=== PATIENT | male | born 1995 | race Caucasian/White ===

== ENCOUNTER → 2021-09-17 10:50 | Outpatient (BNVA) | payer MEDICAID, SELFPAY | PROVIDERS: Visit Provider Nurse Practitioner | DX: E66.9 Obesity, unspecified (principal) | CPT/HCPCS: 80053; 84443; 85025 ==

== ENCOUNTER 2021-10-18 13:17 | Outpatient (CLI) | payer MEDICAID, SELFPAY ==
--- NOTE | 2021-10-18 13:25 | XR_ITS ---
WS: [id number] Exam: XR lumbar spine 2-3V* [id number] Date/Time of Exam: 10/18/2021 1:40 PM Reason For Exam: M54.50 - Low back pain, unspecified Findings: In the AP projection, the lumbar spine is straight. The sacroiliac joints are open. The facet struc tures are bilaterally symmetrical. In the lateral projection, the lumbar curve is well maintained. The intervertebral disc spaces are intact. No fractures or anomalies of the lumbar spine are noted. XR/XR lumbar spine 2-3V* [id number] IMPRESSION: Negative lumbar spine.
== END 2021-10-18 13:18 | disposition home or self-care (01) ==
LOC: RAD 13:20
PROVIDERS: Visit Provider Nurse Practitioner Family
DX: M54.50 Low back pain, unspecified (principal)
CPT/HCPCS: 72100

== ENCOUNTER 2021-11-03 20:00 | Outpatient (CLI) | payer MEDICAID, SELFPAY | END 2021-11-03 20:01 | disposition home or self-care (01) | LOC: SLEEP 11-04 06:17 | PROVIDERS: Visit Provider Nurse Practitioner | DX: G47.33 Obstructive sleep apnea (adult) (pediatric) (principal) | CPT/HCPCS: 95810 ==

== ENCOUNTER 2024-07-14 12:54 | Emergency (ER) | payer SELFPAY ==
[2024-07-14 13:07] VITALS: BP 147/98; PULSE 88; RESP 16; TEMP 36.8; O2SAT 99; BMI 31.6
--- NOTE | 2024-07-14 13:24 | USR_ITS ---
PROCEDURE INFORMATION: Exam: US Left Limited Joint or Other Non-Vascular Extremity Structure Exam date and time: 07/14/2024 2:33 PM Age: 28 years old Clinical indication: Mass or lump; Other: Perineum; Additional info: Mass/abscess TECHNIQUE: Imaging protocol: US left limited joint or other nonvascular extremity structure. Real-time ultrasound with image documentation. Exam focused on the area of clinical interest. COMPARISON: No relevant prior studies available. FINDINGS: Soft tissues: Heterogeneous complex collection in the soft tissues of concern in the perineum measuring 2.1 x 1.6 x 4.3 cm. No central color Doppler vascularity with increased peripheral color Doppler flow. Skin thickening and soft tissue edema noted in the soft tissues of concern. US/US soft tissue/extremity [id number] IMPRESSION: Heterogeneous complex fluid collection in the soft tissues of concern likely representing soft tissue abscess. Overlying skin thickening and edema suggests superimposed cellulitis.
[2024-07-14] MEDS: HYDROcodone-acetaminophen 7.5-325 mg Tablet 1 TAB PO (13:27)
[2024-07-14 13:29] VITALS: BP 143/92; PULSE 87; RESP 18; O2SAT 97
--- NOTE | 2024-07-14 13:40 | ED_ITS ---
HPI - Skin/Abscess/Foreign Bdy 2 General: Chief complaint: Skin/Abscess/Foreign Body Stated complaint: growth in groin area Time Seen by Provider: 07/14/24 13:15 Source: patient Mode of arrival: ambulatory Limitations: no limitations History of Present Illness: 28-year-old male states that he has had abscess to his scrotum over the last few days he states that it is grown is causing some pain he denies any fever denies any drainage no history of diabetes. Associated symptoms: Deny chills, fever(s), nausea or vomiting Related Data Previous Rx's Medication Instructions Recorded cyclobenzaprine 10 mg tablet 10 mg PO TID PRN muscle spasm #20 10/18/21 tabs prednisone 10 mg tablets in a dose See Rx Instructions PO PER PKG DIR 10/18/21 pack #21 ea CPAP machine and supplies #1 ea 12/02/21 hydrocodone 5 mg-acetaminophen 325 1 tab PO Q6H PRN pain #14 tabs 07/14/24 mg tablet sulfamethoxazole 800 1 tab PO BID 10 days #20 tabs 07/14/24 mg-trimethoprim 160 mg tablet (Bactrim DS) Allergies Allergy/AdvReac Type Severity Reaction Status Date / Time No Known Allergies Allergy Verified 07/14/24 13:11 Review of Systems 2 Const: Denies: fever(s), chills, body aches or change in appetite Eyes: Denies: blurry vision or eye discomfort ENMT: Denies: throat pain or dental pain Card: Denies: chest pain Resp: Denies: dyspnea GI: Denies: abdominal pain, nausea, vomiting or diarrhea Musc: Denies: neck pain or back pain Skin/Breast: Denies: rash Neuro: Denies: headache(s) PFSH ED 2 PFSH: Medical History History of cystic acne on back Surgical History History of oral surgery 2020 lower Family History Mother Diabetes Father Hypertension Other Cancer Stroke Denies family history of Clotting disorder Social History Smoking and tobacco/nicotine status: current every day tobacco/nicotine user Second hand smoke exposure: No Alcohol intake: former Substance/Drug Use: unknown Adopted: No Caregiver/support person: No Lives independently: Yes Household members: family Housing: House Marital status: Single Number of children: 1 service: No Current occupational status: employed Pets and animals: Yes Do you think of yourself as: Straight/Heterosexual Current gender identity: Male Physical Exam 2 Const: COMMON NORMALS: no acute distress, patient oriented x3 and healthy appearing HENMT: COMMON NORMALS: normocephalic and atraumatic HEAD & SCALP: n ormocephalic and atraumatic Eye: COMMON NORMALS: conjunctivae normal CONJUNCTIVA: Yes conjunctivae normal Neck/C-Spine: COMMON NORMALS: full ROM and supple Chest: COMMONS NORMALS: normal inspection of the chest Resp: COMMON NORMALS: normal respiratory effort Cardio: COMMON NORMALS: regular rate RATE: regular rate : OTHER: Abscess noted to the base of the scrotum and the perineum no drainage no erythema no signs of Rosi's Extremity: COMMON NORMALS: normal to inspection and full ROM Neuro: COMMON NORMALS: patient oriented x3, moves all extremities and no focal motor deficits Psych: COMMON NORMALS: mental status grossly normal, Normal thought process present and cooperative THOUGHT PROCESS: Normal thought process present Skin: COMMON NORMALS: no rashes or lesions noted and no wounds GENERAL SKIN EXAM: no rashes or lesions noted Procedures Abscess I/D Site: scrotum Local Anesthetic: lidocaine 1% Amount of anesthesia used (mL): 8 Technique: incised with #11 blade Irrigation: No Packing used?: none Course 2 Vital Signs: Vital signs: Vital Signs Temperature 98.3 F 07/14/24 13:07 Pulse Rate 87 07/14/24 13:29 Respiratory Rate 18 07/14/24 13:29 Blood Pressure 143/92 07/14/24 13:29 Pulse Oximetry 97 07/14/24 13:29 Oxygen Delivery Me thod Room Air 07/14/24 13:29 MDM - Skin/Abscess/Foreign Bdy Medicial Decision Making Patient presents here with an abscess to his scrotum was incised and drained here we will place him on antibiotics no signs of Rosi's he stable for discharge return if worsening. Medical Records I reviewed the patient's medical records. Lab Data I reviewed the patient's lab results. 07/14/24 13:40 07/14/24 13:40 Radiology Impressions Soft Tissue Ultrasound 07/14/24 13:24 IMPRESSION: Heterogeneous complex fluid collection in the soft tissues of concern likely representing soft tissue abscess. Overlying skin thickening and edema suggests superimposed cellulitis. Laboratory Results WBC 12.91 10^3/uL (3.29-11.43) H 07/14/24 13:40 RBC 5.73 10^6/uL (3.85-5.65) H 07/14/24 13:40 Hgb 16.20 g/dL (11.27-16.99) 07/14/24 13:40 Hct 47.5 % (37-53) 07/14/24 13:40 MCV 82.9 fl (82-101) 07/14/24 13:40 MCH 28.3 pg (27-33) 07/14/24 13:40 MCHC 34.1 g/dL (30-55) 07/14/24 13:40 RDW 12.4 % (12.1-15.1) 07/14/24 13:40 Plt Count 108 10^3/cmm (157-399) L 07/14/24 13:40 MPV 13.3 fL (7.4-10.4) H 07/14/24 13:40 Neut % (Auto) 76.7 % 07/14/24 13:40 Lymph % (Auto) 15.2 % 07/14/24 13:40 [place] % (Auto) 6.0 % 07/14/24 13:40 Eos % (Auto) 1.4 % 07/14/24 13:40 Baso % (Auto) 0.5 % 07/14/24 13:40 Neut # (Auto) 9.91 10^3/uL (1.8-7.7) H 07/14/24 13:40 Lymph # (Auto) 2.0 10^3/uL (0.8-4.8) 07/14/24 13:40 [place] # (Auto) 0.8 10^3/uL (0.2-0.9) 07/14/24 13:40 Eos # (Auto) 0.2 10^3/uL (0.0-0.8) 07/14/24 13:40 Baso # (Auto) 0.1 10^3/uL (0.0-0.1) 07/14/24 13:40 Nucleated RBC % (auto) 0 % 07/14/24 13:40 Nucleated RBCs # 0.0 /100WBC 07/14/24 13:40 Sodium 136 mmol/L (136-145) 07/14/24 13:40 Potassium 4.3 mmol/L (3.5-5.1) 07/14/24 13:40 Chloride 101 mmol/L (98-107) 07/14/24 13:40 Carbon Dioxide 24 mmol/L (22-29) 07/14/24 13:40 Anion Gap 15.3 (5-19) 07/14/24 13:40 BUN 8 mg/dL (6-20) 07/14/24 13:40 Creatinine 0.8 mg/dL (0.7-1.2) 07/14/24 13:40 GFR Calculation 116.0 mL/min (90-130) 07/14/24 13:40 Glucose 89 mg/dL (65-115) 07/14/24 13:40 Calculated Osmolality 280 mOsm/kg (285-295) L 07/14/24 13:40 Calcium 9.7 mg/dL (8.5-10.5) 07/14/24 13:40 All radiology interpretation(s) finalized by discharge Discharge Plan Discharge Patient Disposition: Home Clinical Impression: Abscess of skin or subcutaneous tissue Condition: Stable Prescriptions: New hydrocodone-acetaminophen 5-325 mg tablet 1 tab PO Q6H PRN (Reason: pain) Qty: 14 0RF sulfamethoxazole-trimethoprim [Bactrim DS] 800-160 mg tablet 1 tab PO BID 10 Days Qty: 20 0RF No Action cyclobenzaprine 10 mg tablet 10 mg PO TID PRN (Reason: muscle spasm) Qty: 20 0RF prednisone 10 mg tablets,dose pack See Rx Instructions PO PER PKG DIR Qty: 21 0RF Rx Instructions: PO PER PKG DIR may use loose pills (DME) CPAP machine and supplies See Rx Instructions .ROUTE .MEDSUPPLY Qty: 1 0RF Rx Instructions: As directed Discharge Orders: Discharge ED (Routine); Ordered 07/14/24 Ordered By: Ronni Rossi Referrals: [facility] [Other] Nell Stover, [facility] [Primary Care Provider] - 4-7 days Discharge Diet: Advance as tolerated Discharge Activity: Use walker/crutches as instructed Patient Instructions: Abscess (ED), Opioid Safety Coding Level of Care Code ED Guest History Clerk for Madison Cohen
[2024-07-14 14:03] LABS: Basophils # 0.1 10^3/uL (0.0-0.1); Basophils % 0.5 %; Eosinophils # 0.2 10^3/uL (0.0-0.8); Eosinophils % 1.4 %; Hematocrit 47.5 % (37-53); Lymphocytes % 15.2 %; Mean Corpuscular HGB Conc 34.1 g/dL (30-55); Mean Corpuscular Hemoglobin 28.3 pg (27-33); Mean Corpuscular Volume 82.9 fl (82-101); Mean Platelet Volume 13.3 fL (7.4-10.4); Monocytes # 0.8 10^3/uL (0.2-0.9); Neutrophils # 9.91 10^3/uL (1.8-7.7); Neutrophils % 76.7 %; Nucleated Red Blood Cells % 0 %; Platelet Count 108 10^3/cmm (157-399); Red Blood Count 5.73 10^6/uL (3.85-5.65); Red Cell Distribution Width 12.4 % (12.1-15.1); White Blood Count 12.91 10^3/uL (3.29-11.43)
[2024-07-14 14:22] LABS: Anion Gap 15.3 (5-19); Blood Urea Nitrogen 8 mg/dL (6-20); Calcium 9.7 mg/dL (8.5-10.5); Carbon Dioxide 24 mmol/L (22-29); Chloride 101 mmol/L (98-107); Creatinine Clr Calc Pharmacy 179.4754; Glucose 89 mg/dL (65-115); Osmolality Calculated 280 mOsm/kg (285-295); Potassium 4.3 mmol/L (3.5-5.1); Sodium 136 mmol/L (136-145)
[2024-07-14 15:10] VITALS: PULSE 61; RESP 17; O2SAT 94
[2024-07-14] MEDS: lidocaine 1% 10 ML INJ SUBCUT (15:31)
[2024-07-14 15:52] VITALS: BP 167/92; PULSE 63; O2SAT 93
== END 2024-07-14 15:54 | disposition home or self-care (01) ==
PROVIDERS: Emergency Provider Emergency Medicine; PCP Nurse Practitioner
DX: N49.2 Inflammatory disorders of scrotum (principal); Z72.0 Tobacco use
CPT/HCPCS: 36415; 55100; 76882; 80048; 85025; 99284